=== PATIENT | male | born 1975 | race Caucasian/White ===

== ENCOUNTER 2022-12-10 08:40 | Emergency (ER) | payer OTHER, SELFPAY ==
[2022-12-10 08:52] VITALS: BP 133/98; PULSE 93; RESP 20; TEMP 37.2; O2SAT 97
--- NOTE | 2022-12-10 08:57 | ED.LOWEXIN ---
HPI - Extremity Injury (Lower) General Chief Complaint: Fall Stated Complaint: Right Ankle Injury Time Seen by Provider: 12/10/22 08:58 Source: patient and RN notes reviewed History of Present Illness HPI Narrative: Patient is a 47-year-old male who presents to urgent care with complaints of right ankle pain. Patient states that he fell off an 8 ft retaining wall yesterday and landed on both feet. Patient states he has been icing, elevating and taking ibuprofen for the pain. Patient states that he also has been using crutches to keep pressure off the foot. No other acute complaints or injuries. No acute distress noted. Patient aware of the plan of care. Some parts of this dictation were generated by voice recognition software and may contain typographical and/or grammatical inaccuracies. Review of Systems Review of Systems: CONSTITUTIONAL: Denies fever, chills, or sweats. EYES: Denies visual changes, redness, or discharge. ENT: Denies rhinorrhea, congestion, sore throat, or otalgia. CARDIOVASCULAR: Denies chest pain, palpitations, or edema. RESPIRATORY: Denies cough or dyspnea. GASTROINTESTINAL: Denies abdominal pain, nausea, vomiting, or diarrhea. GENITOURINARY: Denies dysuria or hematuria. SKIN: Denies rash or itching. MUSCULOSKELETAL: Reports of right ankle pain swelling NEUROLOGIC: Denies headache, numbness, or weakness. All other systems reviewed are negative, except as documented in HPI. PMFSH Comments At the time of my signature, I reviewed and agree with the nursing past medical, surgical, social, and family history. There is no relevant family history pertinent to the patient complaint. Exam Narrative: GENERAL: This is a well-nourished, well-developed patient, in no apparent distress. HEAD: normocephalic, atraumatic. EYES: PERRL. Sclera clear/white. Vision is grossly intact. EARS: External ears normal NOSE: External nose normal with no obvious nasal discharge, nares without redness, no rhinorrhea. THROAT: Mucous membranes moist NECK: Neck supple SKIN: warm, intact with no suspicious lesions or rash, good texture and turgor. NEURO: awake, alert, and oriented to person, place and time. There were no obvious focal neurologic abnormalities. EXTREMITIES: Moderate edema with mild ecchymosis noted to the lateral right malleolus with moderate tenderness. Pain exacerbated with flexion or rotation of the right ankle. Exacerbated pain on weight-bearing. Positive strong right pedal pulse with capillary refill less than 2 seconds. Course Course Level of Care: Express Care Visit Vital Signs Vital signs: Vital Signs Temperature 99.0 F 12/10/22 08:52 Pulse Rate 93 12/10/22 08:52 Respiratory Rate 20 12/10/22 08:52 Blood Pressure 133/98 H 12/10/22 08:52 Pulse Oximetry 97 12/10/22 08:52 Oxygen Delivery Room Air 12/10/22 08:52 Temperature 99.0 F 12/10/22 08:52 Pulse Rate 93 12/10/22 08:52 Respiratory Rate 20 12/10/22 08:52 Blood Pressure 133/98 H 12/10/22 08:52 Pulse Oximetry 97 12/10/22 08:52 Oxygen Delivery Room Air 12/10/22 08:52 Reviewed- Patient is informed that they may have pre-hypertension or hypertension based on a blood pressure reading in the department. I recommend the patient call the primary care provider listed on their discharge instructions or a physician of their choice this week to arrange follow-up for further evaluation of possible pre-hypertension or hypertension. MDM - Extremity Injury (Lower) MDM Narrative Medical decision making narrative: Reviewed x-ray results with the patient. He is aware that x-rays negative for fracture deformity. Advised patient to wear an Edison wrap as needed for comfort her support and continue Tylenol/ibuprofen/ice and elevation. Avoid any strenuous activity until pain has subsided. Follow-up with your PCP within 2-5 days or for worsening symptoms or failure to improve. Differential Diagnosis Differential diagnosis: Elis
== END 2022-12-10 09:47 | disposition home or self-care (01) ==
PROVIDERS: Emergency Provider Nurse Practitioner Family
DX: S93.401A Sprain of unspecified ligament of right ankle, initial encounter (principal); W17.89XA Other fall from one level to another, initial encounter
CPT/HCPCS: 73610; 99213; G0463